=== PATIENT | female | born 1985 | race Caucasian/White ===

== ENCOUNTER 2017-08-01 15:10 | Day surgery (SDC) | payer OTHER ==
[2017-08-01] MEDS ORDERED: NALOXONE HCL INJ/PF 0.4 MG/1 ML SDV ONE (15:13)
[2017-08-01] MEDS ORDERED: EPINEPHRINE INJ 1 MG/10 ML DISP.SYRIN ONE (15:14)
[2017-08-01] MEDS ORDERED: FLUMAZENIL INJ 0.5 MG/5 ML VIAL ONE (15:14)
[2017-08-01] MEDS ORDERED: GLUCAGON,HUMAN RECOMB 1 MG INJ ONE (15:14)
[2017-08-01] MEDS: MIDAZOLAM 2 MG/2 ML INJ ONE ×2 (15:51→15:57)
[2017-08-01] MEDS: FENTANYL CITRATE INJ/PF 100 MCG/2 ML AMPUL ONE ×2 (15:53→15:59)
--- NOTE | 2017-08-01 16:09 | Operative Report ---
Operative Report DATE OF SURGERY: 08/01/17 Operative Report: Pre-op diagnosis: Iron deficiency Post-op diagnosis: 1. Normal gastroduodenal mucosa 2. Residual food in the stomach 3. Possible gastroparesis Surgery: Esophagogastroduodenoscopy with biopsy Medications: Versed 3mg Fentanyl 100mcg IV push Tissue removed: Antral biopsy for pathology Procedure: After informed consent obtained from patient, the throat was sprayed with Hurricane and conscious sedation was achieved. The upper endoscope was inserted into the esophagus under direct vision and advanced into the stomach. The duodenum was entered and examined to the second part. Endoscope was then slowly pulled out of the patient as the mucosa was examined into details. Patient tolerated procedure well. Findings Esophagus: Normal Z-line at: 40 cm Antrum: Normal Body: Normal Fundus: There was some food in the stomach. Her last meal was about 9 hours ago Duodenum first part: Normal Duodenum second part: Normal Plan: Await pathology. She likely has gastroparesis. I advised smaller more frequent meals and better control of her diabetes OPERATION: .
[2017-08-01 17:09] VITALS: BP 109/61
== END 2017-08-01 17:10 | disposition home or self-care (01) ==
LOC: END 15:10
PROVIDERS: ATTEND Internal Medicine Gastroenterology
PROC: 0DJD8ZZ Inspection of Lower Intestinal Tract, Via Natural or Artificial Opening Endoscopic (ICD-10-PCS; principal; 2017-08-01 15:30)
DX: K31.9 Disease of stomach and duodenum, unspecified (principal); T18.2XXA Foreign body in stomach, initial encounter; X58.XXXA Exposure to other specified factors, initial encounter; E61.1 Iron deficiency; C83.10 Mantle cell lymphoma, unspecified site; E03.9 Hypothyroidism, unspecified; E28.2 Polycystic ovarian syndrome; E66.9 Obesity, unspecified; Z79.899 Other long term (current) drug therapy; Z79.84 Long term (current) use of oral hypoglycemic drugs; Z68.35 Body mass index [BMI] 35.0-35.9, adult
CPT/HCPCS: 43239; 88342 ×2; 88305 ×2; J2250; J3010; J0171; J1610; J2310; J3490

== ENCOUNTER 2018-08-31 11:17 | Emergency (ER) | payer OTHER ==
[2018-08-31 11:24] VITALS: BP 137/79
[2018-08-31] MEDS ORDERED: PREDNISONE 20 MG TABLET PO ONE (11:39)
[2018-08-31] MEDS ORDERED: IPRATROPIUM/ALBUTEROL 0.5-2.5 MG/3 ML AMPUL NEB ONE (11:39)
--- NOTE | 2018-08-31 11:40 | ER Document Report ---
ED Medical Screen (RME) - General Chief Complaint: Shortness Of Breath Stated Complaint: CHEST PAIN Time Seen by Provider: 08/31/18 11:33 Notes: 33-year-old female patient with URI and nonproductive cough for 1 week. She was started on Augmentin yesterday. She complains of her chest feeling tight and trouble breathing. She did have wheezing problems and used a nebulizer several years ago when she was on chemotherapy. She does not normally ever need an inhaler, even with upper respiratory tract infections. At this time she does have some wheezes and rhonchi on forced cough. I have greeted and performed a rapid initial assessment of this patient. A comprehensive ED assessment and evaluation of the patient, analysis of test results and completion of the medical decision making process will be conducted by additional ED providers. TRAVEL OUTSIDE OF THE [place] IN LAST 30 DAYS: No - Related Data Allergies/Adverse Reactions: adhesive Allergy (Severe, Verified 08/01/17 15:21) Blisters Past Medical History - Social History Chew tobacco use (# tins/day): No Frequency of alcohol use: None Drug Abuse: None - Past Medical History Cardiac Medical History: Denies: Hx Atrial Fibrillation, Hx Congestive Heart Failure, Hx Coronary Artery Disease, Hx Heart Attack, Hx Hypercholesterolemia, Hx Hypertension, Hx Peripheral Vascular Disease, Hx Pulmonary Embolism, Hx Heart Murmur Pulmonary Medical History: Denies: Hx Asthma, Hx Bronchitis, Hx COPD, Hx Pneumonia, Hx Respiratory Failure, Hx Sleep Apnea, Hx Tuberculosis Neurological Medical History: Denies: Hx Cerebrovascular Accident, Hx Seizures Endocrine Medical History: Reports: Hx Hypothyroidism. Denies: Hx Graves' Disease, Hx Hyperthyroidism Renal/ Medical History: Denies: Hx End Stage Renal Disease, Hx Kidney Stones, Hx Ovarian Cysts, Hx Peritoneal Dialysis, Hx Pelvic Inflammatory Disease Malignancy Medical History: Denies: Hx Breast Cancer, Hx Cervical Cancer, Hx Leukemia, Hx Lung Cancer, Hx Ovarian Cancer GI Medical History: Reports: Hx Gastroesophageal Reflux Disease. Denies: Hx Crohn's Disease, Hx Hiatal Hernia, Hx Irritable Bowel, Hx Liver Failure, Hx Pancreatitis, Hx Ulcer Musculoskeltal Medical History: Denies Hx Arthritis, Denies Hx Fibromyalgia, Denies Hx Multiple Sclerosis, Denies Hx Muscular Dystrophy Psychiatric Medical History: Denies: Hx Bipolar Disorder, Hx Dementia, Hx Depression, Hx Post Traumatic Stress Disorder, Hx Schizophrenia Traumatic Medical History: Denies: Hx Fractures Infectious Medical History: Denies: Hx HIV Past Surgical History: Reports: Hx Breast Surgery - BREAST REDUCTION. Denies: Hx Appendectomy, Hx Bowel Surgery, Hx Section, Hx Cholecystectomy, Hx Colostomy, Hx Coronary Artery Bypass Graft, Hx Gastric Bypass Surgery, Hx Herniorrhaphy, Hx Hysterectomy, Hx Mastectomy, Hx Pacemaker, Hx Tonsillectomy, Hx Tubal Ligation - Immunizations Hx Diphtheria, Pertussis, Tetanus Vaccination: Yes Physical Exam - Vital signs Vitals: Temp Pulse Resp BP Pulse Ox 98.2 F 116 H 20 137/79 H 96 08/31/18 11:21 08/31/18 11:21 08/31/18 11:21 08/31/18 11:21 08/31/18 11:21 Course - Vital Signs Vital signs: Temp Pulse Resp BP Pulse Ox 98.2 F 116 H 20 137/79 H 96 08/31/18 11:21 08/31/18 11:21 08/31/18 11:21 08/31/18 11:21 08/31/18 11:21 Doctor's Discharge - Discharge Referrals: LEONEL RIDER MD [Primary Care Provider] - Follow up as needed
--- NOTE | 2018-08-31 12:08 | RADIOLOGY REPORT (SQ) ---
EXAM DESCRIPTION: CHEST 2 VIEWS COMPLETED DATE/TIME: 08/31/2018 12:01 pm REASON FOR STUDY: Cough, wheezing COMPARISON: 06/08/2015 EXAM PARAMETERS: NUMBER OF VIEWS: two views TECHNIQUE: Digital Frontal and Lateral radiographic views of the chest acquired. RADIATION DOSE: NA LIMITATIONS: none FINDINGS: LUNGS AND PLEURA: No opacities, masses or pneumothorax. No pleural effusion. MEDIASTINUM AND HILAR STRUCTURES: No masses or contour abnormalities. HEART AND VASCULAR STRUCTURES: Heart normal size. No evidence for failure. BONES: No acute findings. HARDWARE: None in the chest. OTHER: Right chest port catheter. IMPRESSION: No acute abnormality of the lungs. TECHNICAL DOCUMENTATION: JOB ID: [id number] [employer]- All Rights Reserved Reading location - IP/workstation name: [email or web address]
[2018-08-31 14:24] LABS: A TYPE INFLUENZA AG NEGATIVE (NEGATIVE); B INFLUENZA AG NEGATIVE (NEGATIVE)
--- NOTE | 2018-08-31 14:45 | ER Document Report ---
ED General - General Chief Complaint: Shortness Of Breath Stated Complaint: CHEST PAIN Time Seen by Provider: 08/31/18 11:33 Mode of Arrival: Ambulatory Information source: Patient, Parent TRAVEL OUTSIDE OF THE [place] IN LAST 30 DAYS: No - HPI Patient complains to provider of: cough Onset: Other - 33-year-old female with a history of PCO S as well as hypothyroidism that presents for evaluation of cough over the last 4 days which is making it difficult for her to sleep, was seen by her primary physician yesterday who evaluated her and stated that she likely had a upper respiratory tract infection and started her on Augmentin as well as Tessalon Perles therefore. She has been taking them without any improvement in her symptoms since. She denies any abdominal pain diarrhea constipation dysuria, rashes does endorse some fevers and chills no episodes of emesis does endorse some chest tightness associated with her coughing says that the albuterol and steroids through triage helped greatly with her symptoms - Related Data Allergies/Adverse Reactions: adhesive Allergy (Severe, Verified 08/01/17 15:21) Blisters Past Medical History - General Information source: Patient, Parent - Social History Smoking Status: Current Every Day Smoker Chew tobacco use (# tins/day): No Frequency of alcohol use: None Drug Abuse: None Family History: Reviewed & Not Pertinent Patient has suicidal ideation: No Patient has homicidal ideation: No - Past Medical History Cardiac Medical History: Denies: Hx Atrial Fibrillation, Hx Congestive Heart Failure, Hx Coronary Artery Disease, Hx Heart Attack, Hx Hypercholesterolemia, Hx Hypertension, Hx Peripheral Vascular Disease, Hx Pulmonary Embolism, Hx Heart Murmur Pulmonary Medical History: Denies: Hx Asthma, Hx Bronchitis, Hx COPD, Hx Pneumonia, Hx Respiratory Failure, Hx Sleep Apnea, Hx Tuberculosis Neurological Medical History: Denies: Hx Cerebrovascular Accident, Hx Seizures Endocrine Medical History: Reports: Hx Hypothyroidism. Denies: Hx Graves' Disease, Hx Hyperthyroidism Renal/ Medical History: Denies: Hx End Stage Renal Disease, Hx Kidney Stones, Hx Ovarian Cysts, Hx Peritoneal Dialysis, Hx Pelvic Inflammatory Disease Malignancy Medical History: Denies: Hx Breast Cancer, Hx Cervical Cancer, Hx Leukemia, Hx Lung Cancer, Hx Ovarian Cancer GI Medical History: Reports: Hx Gastroesophageal Reflux Disease. Denies: Hx Crohn's Disease, Hx Hiatal Hernia, Hx Irritable Bowel, Hx Liver Failure, Hx Pancreatitis, Hx Ulcer Musculoskeletal Medical History: Denies Hx Arthritis, Denies Hx Fibromyalgia, Denies Hx Multiple Sclerosis, Denies Hx Muscular Dystrophy Psychiatric Medical History: Denies: Hx Bipolar Disorder, Hx Dementia, Hx Depression, Hx Post Traumatic Stress Disorder, Hx Schizophrenia Traumatic Medical History: Denies: Hx Fractures Infectious Medical History: Denies: Hx HIV Past Surgical History: Reports: Hx Breast Surgery - BREAST REDUCTION. Denies: Hx Appendectomy, Hx Bowel Surgery, Hx Section, Hx Cholecystectomy, Hx Colostomy, Hx Coronary Artery Bypass Graft, Hx Gastric Bypass Surgery, Hx Herniorrhaphy, Hx Hysterectomy, Hx Mastectomy, Hx Pacemaker, Hx Tonsillectomy, Hx Tubal Ligation - Immunizations Hx Diphtheria, Pertussis, Tetanus Vaccination: Yes Review of Systems - Review of Systems -: Yes All other systems reviewed and negative Physical Exam - Vital signs Vitals: Temp Pulse Resp BP Pulse Ox 98.2 F 116 H 20 137/79 H 96 08/31/18 11:21 08/31/18 11:21 08/31/18 11:21 08/31/18 11:21 08/31/18 11:21 Interpretation: Normal - General General appearance: Appears well, Alert - HEENT Head: Normocephalic, Atraumatic Eyes: Normal Pupils: PERRL - Respiratory Respiratory status: No respiratory distress Chest status: Nontender Breath sounds: Normal Chest palpation: Normal - Cardiovascular Rhythm: Regular Heart sounds: Normal auscultation Murmur: No - Abdominal Inspection: Normal Distension: No distension Bowel sounds: Normal Tenderness: Nontender Organomegaly: No organomegaly - Back Back: Normal, Nontender - Extremities General upper extremity: Normal inspection, Nontender, Normal color, Normal ROM, Normal temperature General lower extremity: Normal inspection, Nontender, Normal color, Normal ROM, Normal temperature, Normal weight bearing. No: Maria A's sign - Neurological Neuro grossly intact: Yes Cognition: Normal Orientation: AAOx4 Henrry Coma Scale Eye Opening: Spontaneous [place] Coma Scale Verbal: Oriented Henrry Coma Scale Motor: Obeys Commands Henrry Coma Scale Total: 15 Speech: Normal Motor strength normal: LUE, RUE, LLE, RLE Sensory: Normal - Psychological Associated symptoms: Normal affect, Normal mood - Skin Skin Temperature: Warm Skin Moisture: Dry Skin Color: Normal Course - Re-evaluation Re-evalutation: 08/31/18 15:23 33-year-old female who presents for evaluation of cough as well as runny nose. She is taking Augmentin already per her primary physician which started her yesterday on for "URI". Through triage she had a chest x-ray ordered as well as the administration of a nebulizer and steroid. Lungs are relatively clear on auscultation without any obvious rhonchi. Her chest x-ray does not demonstrate any obvious infiltrates. Could potentially represent influenza, will obtain influenza swab. Patient with a negative influenza swab. Comfortable on room air with normal work of breathing, she continues to have no obvious wheezes. Do not believe this represents more serious cause of shortness of breath given her prodrome of viral syndrome, such as but not limited to pulmonary embolism, AR, pneumothorax. We will discharge this patient with a course of steroids as well as an MDI as it did improve her symptoms. We did discuss the risks and benefits of Augmentin use. She will follow-up with her primary physician in the coming week for reevaluation. - Vital Signs Vital signs: Temp Pulse Resp BP Pulse Ox 98.2 F 116 H 20 137/79 H 96 08/31/18 11:21 1218 11:21 1218 11:21 18 11:21 08/31/18 11:21 Discharge - Discharge Clinical Impression: Cough, Wheezing, Viral syndrome Condition: Good Disposition: HOME, SELF-CARE Instructions: Acetaminophen, Fever ([facility]), Viral Syndrome ([facility]) Additional Instructions: Your seen today in the emergency department for your cough and shortness of breath. You had an evaluation including a physical exam a chest x-ray and a flu test. You do not have the flu. You do not have an obvious pneumonia. You are already taking Augmentin, you should continue to take the Augmentin. Use the steroid prescribed to you daily for the next 5 days. Use the albuterol as needed for your wheezing or shortness of breath. Return for worsening fevers, chills, abdominal pain diarrhea constipation or dysuria. Prescriptions: Albuterol Sulfate [Proair HFA Inhalation Aerosol 8.5 gm MDI] 1 puff IH Q4 PRN #1 mdi PRN Reason: Prednisone 50 mg PO DAILY #4 tablet Referrals: LEONEL RIDER MD [ACTIVE STAFF] - Follow up as needed
== END 2018-08-31 14:54 | disposition home or self-care (01) ==
LOC: ER 11:17
DX: R05 Cough (principal); B34.9 Viral infection, unspecified; R06.2 Wheezing; R09.89 Other specified symptoms and signs involving the circulatory and respiratory systems; F17.200 Nicotine dependence, unspecified, uncomplicated; I50.9 Heart failure, unspecified; I25.10 Atherosclerotic heart disease of native coronary artery without angina pectoris; I11.0 Hypertensive heart disease with heart failure
CPT/HCPCS: 94640; 99285; 87804; 71046; J7512; J7620